=== PATIENT | female | born 1945 | race Caucasian/White ===

== ENCOUNTER 2021-10-30 12:39 | Emergency (ER) | payer BC ==
[~2021-10-30] VITALS: Ht 157.5 cm; Wt 54.4 kg
[2021-10-30] MEDS ORDERED: MIRT-93 PO (13:09)
[2021-10-30] MEDS ORDERED: VITAMIN D3 PO (13:09)
[2021-10-30] MEDS ORDERED: DOCU250C14 PO (13:09)
[2021-10-30] MEDS ORDERED: ALEN70TA80 PO (13:09)
[2021-10-30] MEDS ORDERED: DULO60CA45 PO (13:09)
[2021-10-30] MEDS ORDERED: CRANBERRY PO (13:09)
[2021-10-30] MEDS ORDERED: MOM PO (13:09)
[2021-10-30] MEDS ORDERED: GABA-532 PO (13:09)
[2021-10-30] MEDS ORDERED: ASPI81TA31 PO (13:09)
[2021-10-30] MEDS ORDERED: METAMUCIL PO (13:09)
[2021-10-30] MEDS ORDERED: SIME80TA15 PO (13:09)
[2021-10-30] MEDS ORDERED: VITA1CAP PO (13:09)
[2021-10-30] MEDS ORDERED: OYSTER SHELL PO (13:09)
[2021-10-30] MEDS ORDERED: DIRO231C2 PO (13:09)
[2021-10-30] MEDS ORDERED: ASCO500C18 PO (13:09)
[2021-10-30] MEDS ORDERED: TDAP DIPH,PERTUSS,TET VAC/PF 0.5 ML DISP.SYRIN IM ONE ×2 (13:30→13:37)
== END 2021-10-30 13:43 | disposition home or self-care (01) ==
LOC: ER 12:39
DX: S09.90XA Unspecified injury of head, initial encounter (principal); S01.01XA Laceration without foreign body of scalp, initial encounter; W18.30XA Fall on same level, unspecified, initial encounter; Y92.099 Unspecified place in other non-institutional residence as the place of occurrence of the external cause; G35 Multiple sclerosis; F03.90 Unspecified dementia, unspecified severity, without behavioral disturbance, psychotic disturbance, mood disturbance, and anxiety; Z79.899 Other long term (current) drug therapy
CPT/HCPCS: 90715; A4663